=== PATIENT | male | born 1950 | race Asian ===

== ENCOUNTER → 2016-04-08 | Outpatient (CLI) | payer BC, OTHER ==
[~2016-04-08] MED LIST: PRLSR20 PO; WARF5TAB90 PO; losartan/hctz
== END | disposition home or self-care (01) ==
LOC: C.RDSM 09:45
PROVIDERS: ATTEND Physical Medicine & Rehabilitation Sports Medicine
DX: Z96.652 Presence of left artificial knee joint (principal)

== ENCOUNTER → 2016-08-29 | Outpatient (CLI) | payer BC ==
[~2016-08-29] MED LIST changes: +OPTIRAY 320 IV PRN
--- NOTE | 2016-08-29 08:13 | DIAGNOSTIC IMAGING REPORT ---
CT ABD/PELVIS IV AND ORAL CONT CLINICAL HISTORY: RECTAL CANCER COMPARISON STUDY: 03/15/2016 TECHNIQUE: Following the IV administration of 94 mL of Optiray-320, CT scan of the abdomen and pelvis was performed from the lung bases to the proximal femurs. Images are reviewed in the axial, sagittal, and coronal planes. IV contrast was administered without complication. CT DOSE: FINDINGS: Lower chest: The heart is normal in size and configuration, without pericardial effusion. The lung bases and pleural spaces are clear. Liver: There is a stable 7 mm hypodensity within medial segment the left lobe. There is a stable 8 mm hypodensity within the right lobe of the liver posteriorly. Gallbladder: Unremarkable. Spleen: Normal in size and attenuation. Pancreas: Unremarkable. Adrenal glands: Unremarkable. Kidneys: There are bilateral renal hypodensities, likely representing cysts. These remain unchanged the preceding study. The largest on the left measures 11 mm. The largest on the right measures 9 mm. There is a stable upper pole right renal cortical scar and small parenchymal calcification. Bowel: There are no transition zones indicate bowel obstruction. There are postsurgical changes within the superior rectum. There is no acute diverticulitis. The appendix appears normal. A small bowel anastomosis is also visualized within the right lower quadrant. There is formed fecal material within distal small bowel loops. This may indicate stasis. Peritoneum: There is no intraperitoneal free air or abdominal ascites. Vasculature: The abdominal aorta is normal in course and caliber. Adenopathy: None. Pelvic viscera: The prostate remains enlarged measuring 6 cm. Skeletal structures: No destructive osseous lesions are seen. IMPRESSION: 1. No evidence of metastatic disease within the abdomen or pelvis 2. Stable hepatic and renal hypodensities likely representing cysts 3. Mildly dilated distal small bowel loops containing formed fecal material. This may indicate stasis. A significant bowel obstruction is not felt to be present 4. Normal appendix Electronically signed by: Milton Elias M.D. 08/29/2016 8:11 AM Dictated Date/Time: 08/29/2016 8:04 AM
--- NOTE | 2016-08-29 08:51 | DIAGNOSTIC IMAGING REPORT ---
CHEST CT WITH CONTRAST CT DOSE: 831.38 mGy.cm HISTORY: RECTAL CANCER TECHNIQUE: Multiaxial CT images of the chest were performed following the intravenous administration of contrast. COMPARISON: Chest CT 03/15/2016. FINDINGS: The central airways are patent. No pleural effusions. No pneumothorax. No focal lung consolidations. No suspicious pulmonary nodules. No lytic or blastic osseous lesions. A 1 cm right thyroid nodule appears to be stable. No mediastinal or hilar lymphadenopathy. The central pulmonary arteries are patent. Normal caliber thoracic aorta. Stable hepatic hypodense lesions. IMPRESSION: 1. No evidence for metastatic disease within the chest. 2. Please refer to the same day abdomen and pelvis CT report for further evaluation of the abdominal structures. Electronically signed by: Donte Marcano M.D. 08/29/2016 8:50 AM Dictated Date/Time: 08/29/2016 8:45 AM
== END | disposition home or self-care (01) ==
LOC: C.CTS 07:32
PROVIDERS: ATTEND Colon & Rectal Surgery
DX: C20 Malignant neoplasm of rectum (principal); R93.5 Abnormal findings on diagnostic imaging of other abdominal regions, including retroperitoneum